=== PATIENT | female | born 2000 | race Caucasian/White ===

== ENCOUNTER 2024-08-25 17:54 | Emergency (ER) | payer SELFPAY ==
[2024-08-25] VITALS (12 sets, daily range): BP systolic 97–121; BP diastolic 61–77
[~2024-08-25] VITALS: Ht 170.2 cm; Wt 74.0 kg
[2024-08-25] MEDS ORDERED: SODIUM CHLORIDE 0.9% 1,000 ML BAG IV ONE (18:20)
[2024-08-25 18:27] LABS: BASO% 0.2 % (0-3); EOS% 0.5 % (0-8); HEMATOCRIT 35.3 % (37.0-47.0); HEMOGLOBIN 11.8 g/dl (12.0-16.0); IMMATURE GRANULOCYTES 0.2 % (0.0-5.0); LYMPH% 14.5 % (15-41); MEAN CELL VOLUME 91.5 fL CALC (80.0-100.0); MEAN CORPUSCULAR HGB 30.6 pG CALC (26.0-32.0); MEAN CORPUSCULAR HGB CONC 33.4 g/dL CAL (32.0-36.0); MONO% 10.8 % (2-13); NEUT# 7.92 thou/uL (2.00-7.15); NEUT% 73.8 % (42-76); RED BLOOD COUNT 3.86 mill/uL (4.20-5.60); RED CELL DISTRI WIDTH 13.7 % (11.5-15.5)
[2024-08-25 18:42] LABS: URINE BILIRUBIN - DIPSTICK Negative (NEGATIVE); URINE BLOOD DIPSTICK Negative (NEGATIVE); URINE GLUCOSE - DIPSTICK Negative (NEGATIVE); URINE KETONE Negative (NEGATIVE); URINE LEUK ESTERASE Negative (NEGATIVE); URINE NITRITE - DIPSTICK Negative (Negative); URINE PROTEIN - DIPSTICK Negative (NEG-TRACE); URINE UROBILINOGEN - DIPSTICK 0.2 E.U./dL (0.2)
[2024-08-25 18:43] LABS: ALBUMIN 4.3 g/dL (3.2-5.0); ALKALINE PHOSPHATASE 58 u/l (38-126); ANION GAP 15 (6-22 (CALC)); BILIRUBIN, TOTAL 0.5 mg/dL (0.02-1.3); BUN 4 mg/dL (7-17); BUN/CREATININE RATIO 5 (12-20 (CALC)); CARBON DIOXIDE 24 mmol/l (22-30); CHLORIDE 110 mmol/l (95-108); CREATININE 0.7 mg/dL (0.5-1.0); ESTIMATED GFR 123 ML/MIN (>=90 (CALC)); ETHYL ALCOHOL 90 mg/dl (0-30); POTASSIUM 3.6 mmol/l (3.5-5.1); SGOT/AST 31 u/l (14-36); SODIUM 145 mmol/l (137-146); TOTAL PROTEIN 7.3 g/dL (6.3-8.2)
[2024-08-25 18:46] LABS: URINE COLOR Yellow
[2024-08-25] MEDS ORDERED: ONDANSETRON HCl 4 MG/2 ML SDV IV STA (19:07)
[2024-08-25] MEDS ORDERED: SODIUM CHLORIDE 0.9% 1,000 ML IV STA (19:33)
== END 2024-08-25 20:50 | disposition home or self-care (01) | DRG 392 ==
LOC: ED 17:54
PROVIDERS: Clinical Nurse Specialist Emergency
DX: R11.10 Vomiting, unspecified (principal); E86.0 Dehydration
CPT/HCPCS: J2405